=== PATIENT | female | born 1970 | race African-American/Black ===

== ENCOUNTER 2016-06-27 12:14 | Emergency (ER) | payer OTHER ==
[2016-06-27 12:28] VITALS: TEMP 97.4; BMI 28.7
[2016-06-27] MEDS ORDERED: SODIUM CHLORIDE 1,000 ML IV STA (13:21)
[2016-06-27 13:42] LABS: EOSINOPHIL 0.1 % (0-4.5); MCH 21.7 pg (25.7-33.7); MCHC 31.5 g/dl (32.0-36.0); MEAN PLT VOLUME 9.1 fl (7.5-11.1); NEUTROPHILS 85.7 % (42.8-82.8); PLATELET COUNT 261 K/MM3 (134-434); RDW 14.9 % (11.6-15.6)
--- NOTE | 2016-06-27 13:58 | PDOC ---
History of Present Illness - General Chief Complaint: Lightheaded Stated Complaint: WEAK DIZZY Time Seen by Provider: 06/27/16 12:56 History Source: Patient Exam Limitations: No Limitations - History of Present Illness Initial Comments: 06/27/16 12:58 45-year-old female presents the ED with complaints of nausea and dizziness worsened with standing since yesterday. Patient states feels as if the room is spinning and has to close her eyes and sit down otherwise she feels as if she is going to fall or vomit. Patient denies previous symptoms and associated symptoms such as headache, visual changes, chest pain, shortness of breath recent illness, recent injury. Patient also denies recent dental work, recent ear infection, recent change in weight or recent change in medications. Patient does state history of hypertension and colitis. Timing/Duration: 24 hours Severity: moderate Associated Symptoms: reports: nausea/vomiting Past History - Past Medical History Allergies/Adverse Reactions: Allergies Allergy/AdvReac Type Severity Reaction Status Date / Time No Known Allergies Allergy Verified 06/27/16 12:19 Home Medications: Ambulatory Orders Losartan Potassium 50 mg PO DAILY 06/27/16 Metoprolol Succinate [Toprol Xl] 50 mg PO DAILY 06/27/16 Pantoprazole Sodium [Protonix] 40 mg PO DAILY 06/27/16 GI Disorders: Yes (colitis) HTN: Yes - Reproductive History Is Patient Now?: No - Immunization History Immunization Up to Date: Yes - Psycho/Social/Smoking Cessation Hx Anxiety: No Suicidal Ideation: No Smoking Status: No Smoking History: Never smoked Have you smoked in the past 12 months: No Number of Cigarettes Smoked Daily: 0 Information on smoking cessation initiated: No Hx Alcohol Use: No Drug/Substance Use Hx: No Substance Use Type: None Patient Lives Alone: No Review of Systems - Review of Systems Able to Perform ROS?: Yes Constitutional: No: Symptoms Reported HEENTM: No: Symptoms Reported Respiratory: No: Symptoms reported Cardiac (ROS): Yes: Lightheadedness ABD/GI: Yes: Nausea Musculoskeletal: No: Symptoms Reported Integumentary: No: Symptoms Reported Neurological: Yes: Dizziness. No: Headache Endocrine: No: Symptoms Reported Hematologic/Lymphatic: No: Symptoms Reported *Physical Exam - Vital Signs Last Vital Signs Temp Pulse Resp BP Pulse Ox 97.4 F L 86 20 123/80 100 06/27/16 12:19 06/27/16 12:19 06/27/16 12:19 06/27/16 12:19 06/27/16 12:19 - Physical Exam General Appearance: Yes: Nourished, Appropriately Dressed. No: Apparent Distress HEENT: positive: EOMI, SABI, TMs Normal, Pharynx Normal. negative: Pale Conjunctivae Neck: positive: Normal Thyroid, Supple Respiratory/Chest: positive: Lungs Clear, Normal Breath Sounds. negative: Respiratory Distress, Accessory Muscle Use Cardiovascular: positive: Regular Rhythm, Regular Rate. negative: Murmur Extremity: positive: Normal Capillary Refill. negative: Pedal Edema Integumentary: positive: Normal Color, Warm, Moist Neurologic: positive: Normal Mood/Affect, Motor Strength 5/5 (ambulatory), Other (Hallpike's positive to the left) ED Treatment Course - LABORATORY CBC & Chemistry Diagram: 06/27/16 13:28 06/27/16 13:28 - RADIOLOGY Radiology Studies Ordered: Category Date Time Status CHEST X-RAY PORTABLE* [RAD] Stat Radiology 06/27/16 13:20 Taken Medical Decision Making - Medical Decision Making 06/27/16 14:01 Patient complains of intermittent dizziness associated nausea worsened with standing. Patient states symptoms began yesterday upon awakening. Patient does state increased stress and does state feels overwhelmed but denies history of depression or feeling of hopelessness. Patient ordered orthostatic vitals and was found to be orthostatic. Patient ordered for IV fluids, cardiac workup along with labs and chest x-ray. Patient also was Boykin pikes positive to the left so was ordered for meclizine. 06/27/16 17:11 Laboratory Tests 06/27/16 06/27/16 06/27/16 13:28 13:28 14:40 WBC 12.0 H D Hgb 12.7 Hct 40.3 MCV 69.0 L MCHC 31.5 L Plt Count 261 D Neutrophils % 85.7 H Polychromasia Pending Hypochromic-Microcytic Pending Anisocytosis Pending Sodium 135 L Potassium 4.2 Chloride 99 Carbon Dioxide 26 D Creatinine 0.6 Random Glucose 101 Calcium 9.3 Total Bilirubin 0.4 ALT 19 D Alkaline Phosphatase 64 Troponin I < 0.02 Urine Ketones Negative Urine Nitrite Negative Urine HCG, Qual Negative Head CT negative for acute findings. Patient has been up twice to the restroom since meclizine dosing with no complaints presently. Patient will be discharged home with meclizine along with a neurology follow-up and instructions on vertigo *DC/Admit/Observation/Transfer Diagnosis at time of Disposition: Postural vertigo Qualifiers: Laterality: left Qualified Code(s): H81.12 - Benign paroxysmal vertigo, left ear - Discharge Dispostion Disposition: HOME Condition at time of disposition: Improved - Referrals Referrals: Jhon Elizabeth MD [Primary Care Provider] - Sagar Hawk MD [Staff Physician] - - Patient Instructions Printed Discharge Instructions: DI for Benign Paroxysmal Positional Vertigo Additional Instructions: Please read over the instructions I have enclosed in regards to vertigo and take meclizine as needed for your symptoms. Please also follow up with referred neurologist and return to the emergency room if your symptoms worsen
[2016-06-27] MEDS ORDERED: MECLIZINE HCL 25 MG TABLET (FP) PO ONE (14:03)
[2016-06-27 14:05] LABS: ALBUMIN 3.5 g/dl (3.4-5.0); ANION GAP 10 (8-16); CALCIUM 9.3 mg/dL (8.5-10.1); CO2 26 mmol/L (21-32); COCKROFT - GAULT 147.7385; CREATININE 0.6 mg/dL (0.55-1.02); GLUCOSE,RANDOM 101 mg/dL (74-106); SGPT/ALT 19 U/L (12-78)
[2016-06-27] MEDS ORDERED: MECLIZINE HCL 25 MG TABLET (FP) ONE (14:06)
[2016-06-27 14:09] LABS: ALK PHOS 64 U/L (45-117); BILIRUBIN,TOTAL 0.4 mg/dL (0.2-1.0); TOT PROT 7.2 g/dl (6.4-8.2); TROPONIN I < 0.02 ng/ml (0.00-0.05)
[2016-06-27 14:20] LABS: SGOT/AST 25 U/L (15-37)
[2016-06-27 15:03] LABS: ANISOCYTOSIS 1+; HYPOCHROMIA 1+; MICROCYTOSIS 1+; POLYCHROMASIA RARE
[2016-06-27] MEDS ORDERED: diazePAM 5 MG TABLET PO ONE (15:21)
[2016-06-27 15:23] LABS: URINE APPEARANCE CLEAR; URINE BILIRUBIN NEGATIVE (NEGATIVE); URINE BLOOD NEGATIVE (NEGATIVE); URINE COLOR COLORLESS; URINE GLUCOSE (UA) NEGATIVE (NEGATIVE); URINE KETONE NEGATIVE (NEGATIVE); URINE LEUK ESTERASE NEGATIVE (NEGATIVE); URINE NITRITE NEGATIVE (NEGATIVE); URINE PROTEIN NEGATIVE (NEGATIVE); URINE UROBILINOGEN NEGATIVE E.U./dl (0.2-1.0)
[2016-06-27] MEDS ORDERED: diazePAM 5 MG TABLET ONE (15:23)
[2016-06-27 17:36] VITALS: BP 146/85; PULSE 93
--- NOTE | 2016-06-28 10:57 | EKG ---
Test Reason : Blood Pressure : / mmHG Vent. Rate : 082 BPM Atrial Rate : 082 BPM P-R Int : 160 ms QRS Dur : 074 ms QT Int : 382 ms P-R-T Axes : 066 005 031 degrees QTc Int : 446 ms NORMAL SINUS RHYTHM POSSIBLE LEFT ATRIAL ENLARGEMENT WHEN COMPARED WITH ECG OF 21-MAR-2015 21:21, NO SIGNIFICANT CHANGE WAS FOUND Confirmed by CLAIRE LAMAR MD ([id number]) on 06/28/2016 10:56:48 AM Referred By: Confirmed By:CLAIRE LAMAR MD
== END 2016-06-27 17:36 | disposition home or self-care (01) ==
LOC: JER 12:14
PROC: 3E0337Z Introduction of Electrolytic and Water Balance Substance into Peripheral Vein, Percutaneous Approach (ICD-10-PCS; principal; 2016-06-27)
DX: H81.12 Benign paroxysmal vertigo, left ear (principal); I10 Essential (primary) hypertension
CPT/HCPCS: 36415; 70450-TC; 71010-TC; 80053; 81003; 82550; 84484; 84703; 85025; 93005; 93010; 99284-25

== ENCOUNTER 2017-05-07 21:51 | Emergency (ER) | payer OTHER ==
[2017-05-07 22:12] VITALS: PULSE 93; TEMP 98.7; BMI 28.3
--- NOTE | 2017-05-07 22:25 | PDOC ---
History of Present Illness - General Chief Complaint: Chest Pain Stated Complaint: CHEST PAIN Time Seen by Provider: 05/07/17 22:23 - History of Present Illness Initial Comments: 05/07/17 22:56 The patient is a 46 year old female with a history of HTN who presents for evaluation of chest congestion, tightness and cough. The patient reports that she was seen at an ER 4 days ago and diagnosed with a URI. She was then evaluated at her ENT's office and was prescribed prednisone and amoxicillin 3 days ago. She reports continued symptoms with cough and worsening chest congestion prompting her presentation to the ED today for evaluation. She otherwise denies fevers, chills, SOB, nausea, vomiting, abdominal pain, or changes with urination or bowel movements. Past History - Past Medical History Allergies/Adverse Reactions: Allergies Allergy/AdvReac Type Severity Reaction Status Date / Time No Known Allergies Allergy Verified 05/07/17 22:11 Home Medications: Ambulatory Orders Losartan Potassium 50 mg PO DAILY 06/27/16 Metoprolol Succinate [Toprol Xl] 50 mg PO DAILY 06/27/16 Metoprolol Succinate [Toprol Xl] 25 mg PO HS 05/07/17 Azithromycin [Zithromax 250mg Tablets -] 250 mg PO UTDICT #4 tab 05/08/17 COPD: No GI Disorders: Yes (colitis) HTN: Yes - Immunization History Immunization Up to Date: Yes - Suicide/Smoking/Psychosocial Hx Smoking Status: No Smoking History: Never smoked Have you smoked in the past 12 months: No Number of Cigarettes Smoked Daily: 0 Information on smoking cessation initiated: No Hx Alcohol Use: No Drug/Substance Use Hx: No Substance Use Type: None Review of Systems - Review of Systems Comments:: 05/07/17 22:59 Constitutional: No fevers, fatigue, malaise HEENT: Nasal Congestion. No Rhinorrhea, visual changes Cardiovascular: Chest tightness. Chest Congestion. No syncope, palpitations, lightheadedness Respiratory: Cough. No SOB, Hemoptysis, Gastrointestinal: No Abdominal pain, Nausea, Vomiting, Constipation, Diarrhea, Melena Genitourinary: No Dysuria, Frequency, Urgency, Hesitancy, Hematuria, Flank pain Musculoskeletal: No Myalgia, arthralgia Skin: No rashes, itching, bruising, pallor Neurologic: No Headache, Dizziness, Numbness, Weakness, or Tingling Psychiatric: No Hallucinations. No SI or HI *Physical Exam - Vital Signs Last Vital Signs Temp Pulse Resp BP Pulse Ox 98.7 F 93 H 19 169/110 100 05/07/17 22:09 05/07/17 22:09 05/07/17 22:09 05/07/17 22:09 05/07/17 22:09 - Physical Exam Comments: 05/07/17 23:00 General Appearance: Nourished. No Apparent Distress HEENT: Mild Pharyngeal Erythema, No Tonsillar Exudate, Tonsillar Erythema Neck: No Cervical Lymphadenopathy Respiratory/Chest: Lungs Clear, Normal Breath Sounds. No Crackles, Rales, Rhonchi, Wheezing Cardiovascular: Regular Rhythm, Regular Rate. No Murmur, Gallops, Rubs Gastrointestinal/Abdominal: Normal Bowel Sounds, Soft. No Guarding, Rebound, Tenderness Musculoskeletal: No CVA Tenderness Extremity: Normal Capillary Refill Integumentary: Normal Color, Dry, Warm Neurologic: Fully Oriented, Alert, Normal Mood/Affect, Normal Response, Heart Score/ECG Review #1 ECG reviewed & interpreted by me at: 23:01 General ECG Interpretation: Sinus Rhythm, Normal Rate, Normal Intervals, No acute ischemic changes ED Treatment Course - LABORATORY CBC & Chemistry Diagram: 05/07/17 23:17 05/07/17 23:50 Medical Decision Making - Medical Decision Making 05/07/17 23:02 The patient is a 46 year old female with a history of HTN who presents for evaluation of chest congestion, tightness and cough. Differential includes but is not limited to: Pneumonia, Bronchitis, ACS, infectious, metabolic derangement. Given the patient's history and symptoms, we will obtain a cbc, cmp, chest plain film, and ekg to evaluate further for possible etiologies including a pneumonia. We will continue to monitor and reassess. 05/08/17 00:42 CBC, cmp are unremarkable. Chest plain film is unremarkable as preliminarily read by ER physician. However, given the patient's clinical symptoms, we will treat her for a bronchitis with azithromycin. We are comfortable discharging the patient home at this time with a course of azithromycin and primary care provider follow up. We discussed the results and the plan as well as return precautions with the patient who voiced understanding and is agreeable with the plan. *DC/Admit/Observation/Transfer Diagnosis at time of Disposition: Bronchitis - Discharge Dispostion Disposition: HOME Condition at time of disposition: Good Admit: No - Prescriptions Prescriptions: Azithromycin [Zithromax 250mg Tablets -] 250 mg PO UTDICT #4 tab - Referrals Referrals: Jhon Elizabeth MD [Primary Care Provider] - - Patient Instructions Printed Discharge Instructions: DI for Acute Bronchitis Additional Instructions: Please return to the ER if you experience concerning or worsening symptoms including worsening chest pain, difficulty breathing, or vomiting. Your lab results were normal here in the ER. We have sent a prescription for a new antibiotic for you to take called azithromycin that you should take daily for the next 4 days. You received your first dose here in the ER. Please call to schedule a follow up appointment with your primary care provider within 2-3 days to discuss your ER visit and further management of your symptoms. - Post Discharge Activity
--- NOTE | 2017-05-07 22:49 | PDOC ---
Attending Attestation - HPI HPI: 05/07/17 22:59 The patient is a 46 year old female with a significant PMH of HTN and colitis who presents to the emergency department with dry cough, nasal congestion, and chest tightness beginning approximately 4 days ago. The patient reports being evaluated on Friday for nasal congestion and notes being discharged with instructions for a respiratory viral illness. She notes going to her ENT on Friday and beginning a course of Pepcid and Amoxicillin which she has used to some relief. She presents today after her symptoms persist. Allergies: NKA PCP: Dr. Jhon Elizabeth <Silvio Pandey - Last Filed: 05/07/17 23:40> - Resident Resident Name: Javier Kirk - ED Attending Attestation I have performed the following: I have examined & evaluated the patient, The case was reviewed & discussed with the resident, I agree w/resident's findings & plan, Exceptions are as noted - Physicial Exam PE: 05/08/17 00:44 *Physical Exam General Appearance: Yes: Appropriately Dressed. No: Apparent Distress, Intoxicated HEENT: positive: EOMI, SABI, Normal ENT Inspection, Normal Voice, TMs Normal, Pharynx Normal. negative: Pale Conjunctivae, Photophobia, Scleral Icterus (R), Scleral Icterus (L) Neck: positive: Trachea midline, Normal Thyroid, Supple. negative: Tender, Rigid, Carotid bruit, Stridor, Lymphadenopathy (R), Lymphadenopathy (L), Thyromegaly Respiratory/Chest: positive: Lungs Clear, Normal Breath Sounds. negative: Chest Tender, Respiratory Distress, Accessory Muscle Use, Labored Respiration, RES, Crackles, Rales, Rhonchi, Stridor, Wheezing, Dullness Cardiovascular: positive: Regular Rhythm, Regular Rate, S1, S2. negative: Edema , JVD, Murmur, Bradycardia, Tachycardia Vascular Pulses: Dorsalis-Pedis (R): 2+, Doralis-Pedis (L): 2+ Gastrointestinal/Abdominal: positive: Normal Bowel Sounds, Flat, Soft. negative : Tender, Organomegaly, Pulsatile Mass, Increased Bowel Sounds, Decreased BS, Distended, Guarding, Rebound, Hernia, Hepatomegaly, Spleenomegaly Lymphatic: negative: Adenopathy, Tenderness Musculoskeletal: positive: Normal Inspection. negative: CVA Tenderness, Decreased Range of Motion Extremity: positive: Normal Capillary Refill, Normal Inspection, Normal Range of Motion, Pelvis Stable. negative: Tender, Pedal Edema, Swelling, Erythema Integumentary: positive: Normal Color, Dry, Warm. 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 negative: EOM Palsy, Facial Droop, Sensory Deficit - Medical Decision Making 05/08/17 00:44 pt treated and released <Troy Alberto - Last Filed: 05/08/17 00:44> Heart Score/ECG Review #1 05/07/17 23:40 Vent rate 83 bpm Normal sinus rhythm Normal intervals No acute ischemic changes. <Silvio Pandey - Last Filed: 05/07/17 23:40>
[2017-05-07 23:26] LABS: BASO % 0.9 % (0-2.0); EOS % 0.8 % (0-4.5); HEMATOCRIT 42.3 % (32.4-45.2); HEMOGLOBIN 13.2 GM/dL (10.7-15.3); LYMPH % 37.9 % (8-40); MCH 21.6 pg (25.7-33.7); MCHC 31.2 g/dl (32.0-36.0); MEAN CELL VOLUME 69.3 fl (80-96); MEAN PLT VOLUME 8.8 fl (7.5-11.1); MONO % 10.4 % (3.8-10.2); PLATELET COUNT 303 K/MM3 (134-434); RBC 6.11 M/mm3 (3.60-5.2); RDW 15.5 % (11.6-15.6); WHITE BLOOD COUNT 5.6 K/mm3 (4.0-10.0)
[2017-05-08 00:30] LABS: ALBUMIN 3.3 g/dl (3.4-5.0); ALK PHOS 96 U/L (45-117); ANION GAP 10 (8-16); BLOOD UREA NITROGEN 17 mg/dL (7-18); CALCIUM 8.2 mg/dL (8.5-10.1); CHLORIDE 104 mmol/L (98-107); CO2 28 mmol/L (21-32); CREATININE 0.7 mg/dL (0.55-1.02); GLUCOSE,RANDOM 118 mg/dL (74-106); POTASSIUM 3.4 mmol/L (3.5-5.1); SGOT/AST 17 U/L (15-37); SGPT/ALT 23 U/L (12-78); SODIUM 142 mmol/L (136-145); TOT PROT 7.2 g/dl (6.4-8.2)
[2017-05-08 00:32] LABS: BILIRUBIN,TOTAL < 0.1 mg/dL (0.2-1.0)
[2017-05-08] MEDS ORDERED: AZITHROMYCIN 250 MG TABLET PO ONE (00:41)
[2017-05-08] MEDS ORDERED: AZITHROMYCIN 250 MG TABLET ONE (00:55)
[2017-05-08 01:09] VITALS: BP 175/93
--- NOTE | 2017-05-08 16:38 | EKG ---
Test Reason : Blood Pressure : / mmHG Vent. Rate : 083 BPM Atrial Rate : 083 BPM P-R Int : 152 ms QRS Dur : 080 ms QT Int : 380 ms P-R-T Axes : 054 -31 008 degrees QTc Int : 446 ms NORMAL SINUS RHYTHM POSSIBLE LEFT ATRIAL ENLARGEMENT LEFT AXIS DEVIATION ABNORMAL ECG WHEN COMPARED WITH ECG OF 27-JUN-2016 13:50, QRS AXIS SHIFTED LEFT Confirmed by EMI OWEN, ELSY ([id number]) on 05/08/2017 4:38:17 PM Referred By: Confirmed By:ELSY MIDDLETON MD
== END 2017-05-08 01:09 | disposition home or self-care (01) ==
LOC: JER 21:51
DX: J40 Bronchitis, not specified as acute or chronic (principal); I10 Essential (primary) hypertension
CPT/HCPCS: 36415; 71046-TC-FY; 80053; 82550; 84484; 84703; 85025; 93005; 93010; 99282-25

== ENCOUNTER 2018-02-01 12:04 | Emergency (ER) | payer OTHER ==
[2018-02-01 12:22] VITALS: BMI 32.5
--- NOTE | 2018-02-01 12:33 | PDOC ---
History of Present Illness - General Chief Complaint: Back Pain Stated Complaint: SENT BY PCP HTN Time Seen by Provider: 02/01/18 12:33 History Source: Patient Exam Limitations: No Limitations - History of Present Illness Initial Comments: 02/01/18 12:56 CC: back pain, HTN HPI: 47 year old female with PMH HTN, Madiha Fundoplication, GERD sent to ED from urgent care for HTN, pt presented to urgent care complaining of left low back pain since this morning. She stated she was leaning over, trying to zip up a suitcase, heard a "pop" and began to feel left sided low back pain radiating to her left thigh. She stated this pain feels similar to her prior low back pain exacerbations. She stated she ran out of her Losartan 100 mg daily and Toprol 100 mg daily x4-5 days ago, and has not been able to get to the pharmacy to fill her medications secondary to work. She admitted to increased SOB at rest (with talking), blurry vision, lower extremity swelling (R>L) x4-5 days. She denied dizziness, weakness, hematuria, chest pain, recent travel>5 hours, hx DVT/PE, hormone use, OCP use, surgery <4 weeks, active malignancy <6 months. Social: Denied cigarette use, past or present. Denied every day etoh use. Denied illicit drug use. Surgical history: partial hysterectomy 2007 Past History - Past Medical History Allergies/Adverse Reactions: Allergies Allergy/AdvReac Type Severity Reaction Status Date / Time SLIM Inhibitors Allergy Verified 02/01/18 12:24 ramipril Allergy Verified 02/01/18 12:23 Home Medications: Ambulatory Orders Cephalexin Monohydrate [Keflex -] 500 mg PO BID #13 capsule 02/01/18 Furosemide [Lasix] 40 mg PO DAILY 02/01/18 Ibuprofen 600 mg PO TID #12 tablet 02/01/18 Linaclotide [Linzess] 72 mcg PO ASDIR 02/01/18 Losartan Potassium 100 mg PO DAILY 02/01/18 Losartan Potassium 100 mg PO DAILY #5 tablet 02/01/18 Metoclopramide HCl [Reglan] 5 mg PO TID 02/01/18 Metoprolol Succinate [Toprol Xl -] 100 mg PO DAILY 02/01/18 Metoprolol Succinate [Toprol Xl] 100 mg PO DAILY #5 tab.er.24h 02/01/18 COPD: No GI Disorders: Yes (colitis) HTN: Yes - Immunization History Immunization Up to Date: Yes - Suicide/Smoking/Psychosocial Hx Smoking Status: No Smoking History: Never smoked Have you smoked in the past 12 months: No Number of Cigarettes Smoked Daily: 0 Information on smoking cessation initiated: No Hx Alcohol Use: No Drug/Substance Use Hx: No Substance Use Type: None Review of Systems - Review of Systems Able to Perform ROS?: Yes Comments:: 02/01/18 13:02 General: denied fever, chills, night sweats, generalized weakness. Eyes: admitted to blurry vision. HENT: denied sore throat, rhinorrhea, ear pain. Heart: admitted to lower extremity swelling. denied chest pain, palpitations, syncope, diaphoresis. Respiratory: admitted to shortness of breath. denied cough, sputum production, hemoptysis. Abdomen: admitted to nausea. denied abdominal pain, vomiting, diarrhea, constipation, blood in stool. : denied dysuria, increased urinary frequency, hematuria, urinary incontinence , flank pain. Back: admitted to back pain. Musculoskeletal: denied joint pain, joint swelling. Neurological: admitted to headache. denied dizziness, numbness, tingling, weakness. Skin: denied rash, laceration, abrasion. *Physical Exam - Vital Signs Last Vital Signs Temp Pulse Resp BP Pulse Ox 98.0 F 94 H 16 232/123 H 100 02/01/18 12:20 02/01/18 12:20 02/01/18 12:20 02/01/18 12:20 02/01/18 12:20 - Physical Exam Comments: 02/01/18 13:05 Constitutional: Well-nourished, Well-developed, appearing stated age. HEENT: head is normocephalic, atraumatic. EOMI. PERRLA. Neck: supple. Full ROM. Heart: regular rhythm. no murmurs, rubs or gallops. Lungs: clear to auscultation bilaterally. no crackles, rhonchi or wheezing. no stridor. Abdomen: soft, nontender. normal bowel sounds. no rebound, guarding, masses. Extremities: Peripheral pulses intact adn equal. No lower extremity edema. Neurological: Alert. Oriented x3. CN2-12 intact. 5/5 strength RUE, LUE, RLE. Decreased strength to LLE secondary to back pain. Full sensation all extremities and bilateral face. No ataxia. Antalgic gait. Psych: awake, alert, oriented x3. Follows commands. Answers questions appropriately. Moderate Sedation - Procedure Monitoring Vital Signs: Procedure Monitoring Vital Signs Temperature 98.0 F 02/01/18 12:20 Pulse Rate 94 H 02/01/18 12:20 Respiratory Rate 16 02/01/18 12:20 Blood Pressure 232/123 H 02/01/18 12:20 O2 Sat by Pulse Oximetry (%) 100 02/01/18 12:20 ED Treatment Course - LABORATORY CBC & Chemistry Diagram: 02/01/18 12:48 02/01/18 14:28 Medical Decision Making - Medical Decision Making 02/01/18 13:06 MDM: Initial Vital Signs Temp Pulse Resp BP Pulse Ox 98.0 F 94 H 16 232/123 H 100 02/01/18 12:20 02/01/18 12:20 02/01/18 12:20 02/01/18 12:20 02/01/18 12:20 Afebrile. No tachycardia. No tachypnea. Hypertensive urgency. No hypoxia on room air. Labs ordered: CBC, CMP, cardiac enzymes, BNP, UA/UC Imaging ordered: CXR, CT head, RLE duplex US Medications ordered: Toprol 100 mg, Losartan 100 mg EKG performed at 1302: rate 83, regular rhythm, left axis, AZh=926, nonspecific ST changes. CBC WBC 8.9 K/mm3 (4.0-10.0) 02/01/18 12:48 RBC 5.90 M/mm3 (3.60-5.2) H 02/01/18 12:48 Hgb 13.1 GM/dL (10.7-15.3) 02/01/18 12:48 Hct 40.0 % (32.4-45.2) 02/01/18 12:48 MCV 67.8 fl (80-96) L 02/01/18 12:48 MCH 22.2 pg (25.7-33.7) L 02/01/18 12:48 MCHC 32.7 g/dl (32.0-36.0) 02/01/18 12:48 RDW 15.6 % (11.6-15.6) 02/01/18 12:48 Plt Count No Result Required. 02/01/18 12:48 MPV No Result Required. 02/01/18 12:48 Absolute Neuts (auto) 6.1 K/mm3 (1.5-8.0) 02/01/18 12:48 Neutrophils % 68.3 % (42.8-82.8) D 02/01/18 12:48 Lymphocytes % 23.5 % (8-40) D 02/01/18 12:48 Monocytes % 5.2 % (3.8-10.2) 02/01/18 12:48 Eosinophils % 1.7 % (0-4.5) D 02/01/18 12:48 Basophils % 1.3 % (0-2.0) 02/01/18 12:48 Nucleated RBC % 0 % (0-0) 02/01/18 12:48 No leukocytosis. No anemia. Decreased MCV. No thrombocytopenia. 02/01/18 13:23 CXR report: no acute chest pathology. 02/01/18 14:04 Lab stated CMP and T/S hemolyzed. Above reordered. 02/01/18 15:02 Vital Signs Temperature 98.0 F 02/01/18 12:20 Pulse Rate 94 H 02/01/18 12:20 Respiratory Rate 16 02/01/18 12:20 Blood Pressure 189/106 H 02/01/18 14:25 O2 Sat by Pulse Oximetry (%) 100 02/01/18 12:20 BP decreased with home meds. Valium ordered for back pain. Urine Test Results Urine Color Yellow 02/01/18 13:15 Urine Appearance Cloudy 02/01/18 13:15 Urine pH 6.0 (5.0-8.0) 02/01/18 13:15 Ur Specific [place] 1.026 (1.010-1.035) 02/01/18 13:15 Urine Protein Negative (NEGATIVE) 02/01/18 13:15 Urine Glucose (UA) Negative (NEGATIVE) 02/01/18 13:15 Urine Ketones Negative (NEGATIVE) 02/01/18 13:15 Urine Blood Negative (NEGATIVE) 02/01/18 13:15 Urine Nitrite Negative (NEGATIVE) 02/01/18 13:15 Urine Bilirubin Negative (<2.0 mg/dL) 02/01/18 13:15 Ur Leukocyte Esterase 3+ (NEGATIVE) H 02/01/18 13:15 Ur Epithelial Cells Many /HPF (FEW) 02/01/18 13:15 Urine Bacteria Rare /hpf (NONE SEEN) 02/01/18 13:15 Urine Mucus Few 02/01/18 13:15 WBC 61. Pt has UTI. - Keflex ordered No blood in urine. CT head report: no evidence of focal intracranial lesion or hemorrhage. RLE US report: no DVT 02/01/18 15:56 Pt reported improvement of back pain at rest, but not with movement. Pt standing. Repeat vitals: BP 179/100 HR 56 SPO2 100% on room air. 02/01/18 17:04 CMP Sodium 142 mmol/L (136-145) 02/01/18 14:28 Potassium 3.9 mmol/L (3.5-5.1) 02/01/18 14:28 Chloride 107 mmol/L (98-107) 02/01/18 14:28 Carbon Dioxide 25 mmol/L (21-32) 02/01/18 14:28 Anion Gap 10 MMOL/L (8-16) 02/01/18 14:28 BUN 11 mg/dL (7-18) 02/01/18 14:28 Creatinine 0.7 mg/dL (0.55-1.3) 02/01/18 14:28 Creat Clearance w eGFR > 60 (>60) 02/01/18 14:28 Random Glucose 70 mg/dL (74-106) L 02/01/18 14:28 Calcium 9.3 mg/dL (8.5-10.1) 02/01/18 14:28 Magnesium 2.1 mg/dL (1.8-2.4) 02/01/18 14:28 Total Bilirubin 0.3 mg/dL (0.2-1) 02/01/18 14:28 AST 18 U/L (15-37) 02/01/18 14:28 ALT 19 U/L (13-61) 02/01/18 14:28 Alkaline Phosphatase 81 U/L (45-117) 02/01/18 14:28 Creatine Kinase 97 IU/L (26-192) 02/01/18 14:28 Troponin I < 0.02 ng/ml (0.00-0.05) 02/01/18 14:28 B-Natriuretic Peptide 170.2 pg/ml (5-125) H 02/01/18 14:28 Total Protein 7.7 g/dl (6.4-8.2) 02/01/18 14:28 Albumin 3.7 g/dl (3.4-5.0) 02/01/18 14:28 No clinically concerning electrolyte abnormalities. No transaminitis. No TARYN. Normal cardiac enzymes. No transaminitis. BNP mildly elevated. Toradol ordered for back pain. 02/01/18 17:56 Pt reassessed, stated pain has decreased from 15/ to 9/10. Stated pain comes in spurts with muscle spasm. Vital Signs Temperature 98.0 F 02/01/18 12:20 Pulse Rate 71 02/01/18 17:37 Respiratory Rate 18 02/01/18 17:37 Blood Pressure 200/97 H 02/01/18 17:37 O2 Sat by Pulse Oximetry (%) 100 02/01/18 17:37 BP increasing. Lasix 10 mg ordered. - Pt now reported she did not take this medication today because she knew she would be out and didnt want to have to pee CTA thorax/abdomen/pelvis ordered to rule out AAA/dissection. - 1000 cc normal saline bolus ordered for IV contrast ppx 02/01/18 19:08 Vital Signs Temperature 98.0 F 02/01/18 12:20 Pulse Rate 71 02/01/18 17:37 Respiratory Rate 18 02/01/18 17:37 Blood Pressure 174/97 H 02/01/18 18:32 O2 Sat by Pulse Oximetry (%) 100 02/01/18 17:37 BP responsive to Lasix. 02/01/18 20:22 Pt reassessed, reported back pain improved to 6-7/10. Pt ambulating well unassisted. - Percocet ordered. CTA chest/abdomen report: no AAA, no thoracic aortic dissection, no abdominal aortic dissection, no obvious PE, trace pericardial effusion. Pt stated she will follow up with her PCP in 1-2 days. *DC/Admit/Observation/Transfer Diagnosis at time of Disposition: Hypertension, Back pain - Discharge Dispostion Disposition: HOME Condition at time of disposition: Stable Decision to Admit order: No - Prescriptions Prescriptions: Cephalexin Monohydrate [Keflex -] 500 mg PO BID #13 capsule Ibuprofen 600 mg PO TID #12 tablet Losartan Potassium 100 mg PO DAILY #5 tablet Metoprolol Succinate [Toprol Xl] 100 mg PO DAILY #5 tab.er.24h - Referrals Referrals: ON STAFF,NOT [Primary Care Provider] - - Patient Instructions Printed Discharge Instructions: DI for Low Back Pain, DI for High Blood Pressure Additional Instructions: You were seen today for high blood pressure and back pain. You have a urinary tract infection. I have sent a prescription to your pharmacy for an antibiotic, take as advised on label. Do not stop early. Do not miss any doses. Take an over the counter probiotic to help reduced antibiotic associated diarrhea. 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 Follow up with your primary care doctor in 1-2 days. Your care is not complete until you follow up. Return to the Emergency Department for increasing pain, loss of bowel or bladder function, lightheadedness like you may pass out, numbness/tingling, weakness of your arms or legs, chest pain, shortness of breath, coughing up blood, blood in urine or stool or any other new, worsening or concerning symptoms. - Post Discharge Activity
[2018-02-01] MEDS ORDERED: LOSARTAN POTASSIUM 50 MG TABLET (FP) PO ONE (13:16)
--- NOTE | 2018-02-01 13:56 | PDOC ---
Attending Attestation - Resident Resident Name: Lidia Gregg - ED Attending Attestation I have performed the following: I have examined & evaluated the patient, The case was reviewed & discussed with the resident, I agree w/resident's findings & plan, Exceptions are as noted - HPI HPI: 47 yo F history HTN, GERD, Madiha fundoplication presents with L low back pain since this morning. She leaned over to zip a suitcase and felt a pop sensation followed by severe low back pain radiating down her left thigh. Deneis weakness , numbness. She has been having difficulty sitting, turning her torso, and bending since this occurred. Denies cp, abdominal pain, N/V, shortness of breath. - Physicial Exam PE: GENERAL: Awake, alert, and fully oriented, in no acute distress. Appears uncomfortable, standing in the room. HEAD: No signs of trauma EYES: PERRLA, EOMI, sclera anicteric, conjunctiva clear ENT: Auricles normal inspection, hearing grossly normal, nares patent, oropharynx clear without exudates. Moist mucosa NECK: Normal ROM, supple, no lymphadenopathy, JVD, or masses LUNGS: Breath sounds equal, clear to auscultation bilaterally. No wheezes, and no crackles HEART: Regular rate and rhythm, normal S1 and S2, no murmurs, rubs or gallops ABDOMEN: Soft, nontender, normoactive bowel sounds. No guarding, no rebound. No masses EXTREMITIES: Normal range of motion, no edema. No clubbing or cyanosis. No cords, erythema, or tenderness NEUROLOGICAL: Cranial nerves II through XII grossly intact. Normal speech, normal gait. Motor and sensation intact. SKIN: Warm, Dry, normal turgor, no rashes or lesions noted. SPINE: No midline tenderness. +L lumbar paraspinal soft tissue tenderness. L SLR positive. - Medical Decision Making Pt with extremely high BP, has not been on her medication for the past 4-5 days , ran out. While that would raise the suspicion for AAA/dissection, the mechanism that led to her pain is much more typical for a musculoskeletal injury vs sciatica. It started with a pop, then is reproduced by any movements, plus radiation down her leg. Will obtain labs, give her regular HTN meds, obtain CTH (she mentioned blurry vision), and give analgesia.
[2018-02-01 14:02] LABS: PROTHROMBIN TIME (PATIENT) 11.8 SEC (9.7-13.0)
[2018-02-01 14:03] LABS: ACTIVATED PTT 27.4 SECONDS (25.2-36.5)
[2018-02-01 14:16] LABS: URINE APPEARANCE CLOUDY; URINE BILIRUBIN NEGATIVE (<2.0 mg/dL); URINE COLOR YELLOW; URINE GLUCOSE (UA) NEGATIVE (NEGATIVE); URINE KETONE NEGATIVE (NEGATIVE); URINE LEUK ESTERASE 3+ (NEGATIVE); URINE NITRITE NEGATIVE (NEGATIVE); URINE PROTEIN NEGATIVE (NEGATIVE); URINE UROBILINOGEN NEGATIVE mg/dL (0.2-1.0)
[2018-02-01 14:17] LABS: BASO % 1.3 % (0-2.0); EOS % 1.7 % (0-4.5); HEMOGLOBIN 13.1 GM/dL (10.7-15.3); LYMPH % 23.5 % (8-40); MCH 22.2 pg (25.7-33.7); MCHC 32.7 g/dl (32.0-36.0); MEAN CELL VOLUME 67.8 fl (80-96); MONO % 5.2 % (3.8-10.2); NEUT % 68.3 % (42.8-82.8); RDW 15.6 % (11.6-15.6); WHITE BLOOD COUNT 8.9 K/mm3 (4.0-10.0)
[2018-02-01] MEDS ORDERED: diazePAM 5 MG TABLET PO ONE (14:27)
[2018-02-01] MEDS ORDERED: diazePAM 5 MG TABLET ONE (14:40)
[2018-02-01 14:52] LABS: EPI CELLS MANY /HPF (FEW); URINE BACTERIA RARE /hpf (NONE SEEN); URINE MUCUS FEW
[2018-02-01] MEDS ORDERED: CEPHALEXIN MONOHYDRATE 500 MG CAPSULE (UD) PO ONE (15:02)
[2018-02-01] MEDS ORDERED: CEPHALEXIN MONOHYDRATE 500 MG CAPSULE (UD) ONE (15:13)
[2018-02-01 17:02] LABS: ALBUMIN 3.7 g/dl (3.4-5.0); ALK PHOS 81 U/L (45-117); ANION GAP 10 MMOL/L (8-16); BILIRUBIN,TOTAL 0.3 mg/dL (0.2-1); BLOOD UREA NITROGEN 11 mg/dL (7-18); CALCIUM 9.3 mg/dL (8.5-10.1); CHLORIDE 107 mmol/L (98-107); CO2 25 mmol/L (21-32); CREATININE 0.7 mg/dL (0.55-1.3); GLUCOSE,RANDOM 70 mg/dL (74-106); MAGNESIUM 2.1 mg/dL (1.8-2.4); N-TERMINAL BNP 170.2 pg/ml (5-125); POTASSIUM 3.9 mmol/L (3.5-5.1); SGOT/AST 18 U/L (15-37); SGPT/ALT 19 U/L (13-61); SODIUM 142 mmol/L (136-145); TOT PROT 7.7 g/dl (6.4-8.2)
[2018-02-01] MEDS ORDERED: KETOROLAC TROMETHAMINE 30 MG/1 ML VIAL IVPUSH ONE (17:04)
--- NOTE | 2018-02-01 17:16 | EKG ---
Test Reason : Blood Pressure : / mmHG Vent. Rate : 083 BPM Atrial Rate : 083 BPM P-R Int : 152 ms QRS Dur : 076 ms QT Int : 390 ms P-R-T Axes : 056 -27 028 degrees QTc Int : 458 ms NORMAL SINUS RHYTHM POSSIBLE LEFT ATRIAL ENLARGEMENT BORDERLINE ECG WHEN COMPARED WITH ECG OF 07-MAY-2017 22:05, NO SIGNIFICANT CHANGE WAS FOUND Confirmed by RAPHAEL KEATING MD ([id number]) on 02/01/2018 5:15:57 PM Referred By: Confirmed By:RAPHAEL KEATING MD
[2018-02-01] MEDS ORDERED: FUROSEMIDE 40 MG TABLET (FP) ONE (17:22)
[2018-02-01] MEDS ORDERED: KETOROLAC TROMETHAMINE 30 MG/1 ML VIAL ONE (17:22)
[2018-02-01] MEDS ORDERED: FUROSEMIDE 40 MG TABLET (FP) PO ONE (17:59)
[2018-02-01] MEDS ORDERED: SODIUM CHLORIDE 1,000 ML IV STA (18:06)
[2018-02-01] MEDS ORDERED: LIDOCAINE 5% TOPICAL PATCH TP ONE (18:13)
[2018-02-01] MEDS ORDERED: LIDOCAINE 5% TOPICAL PATCH ONE ×2 (18:26)
[2018-02-01 21:16] VITALS: BP 138/96; PULSE 75; TEMP 97.7
[2018-02-01] MEDS ORDERED: LIDOCAINE PATCH REMOVAL MC SCH (22:00)
== END 2018-02-01 21:21 | disposition home or self-care (01) ==
LOC: JER 12:04
PROC: 3E0333Z Introduction of Anti-inflammatory into Peripheral Vein, Percutaneous Approach (ICD-10-PCS; principal; 2018-02-01)
PROC: 3E0337Z Introduction of Electrolytic and Water Balance Substance into Peripheral Vein, Percutaneous Approach (ICD-10-PCS; 2018-02-01)
DX: M54.9 Dorsalgia, unspecified (principal); I10 Essential (primary) hypertension; K52.9 Noninfective gastroenteritis and colitis, unspecified; Z98.890 Other specified postprocedural states
CPT/HCPCS: 36415; 70450-TC; 71045-TC-FY; 71275-TC; 74175-TC; 80053; 81003; 81015; 82550; 83735; 83880; 84484; 85025; 85610; 85730; 87086; 93005; 93010; 93971-TC; 99283-25; J7030

== ENCOUNTER 2018-11-22 18:51 | Emergency (ER) | payer OTHER ==
[2018-11-22 18:57] VITALS: BP 168/94; PULSE 77; TEMP 98.9; BMI 33.9
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
== END 2018-11-22 19:40 | disposition home or self-care (01) ==
LOC: JERFT 18:51
DX: T22.011A Burn of unspecified degree of right forearm, initial encounter (principal); X10.2XXA Contact with fats and cooking oils, initial encounter; Y93.G1 Activity, food preparation and clean up; Y92.090 Kitchen in other non-institutional residence as the place of occurrence of the external cause; Y99.8 Other external cause status; I10 Essential (primary) hypertension; Z87.19 Personal history of other diseases of the digestive system; Z88.8 Allergy status to other drugs, medicaments and biological substances
CPT/HCPCS: 99281-25

== ENCOUNTER 2023-11-27 19:39 | Observation (INO) | payer OTHER ==
[2023-11-27 19:59] VITALS: BMI 36.3
[2023-11-27] MEDS ORDERED: ACETAMINOPHEN INJECTION 100 ML ONE (20:50)
[2023-11-27 22:34] LABS: EOS % 1.3 % (0-4.5); HEMATOCRIT 41.2 % (32.4-45.2); LYMPH % 20.8 % (8-40); MCH 21.5 pg (25.7-33.7); MCHC 31.7 g/dl (32.0-36.0); MEAN CELL VOLUME 67.9 fl (80-96); MONO % 6.5 % (3.8-10.2); NEUT % 70.4 % (42.8-82.8); PLATELET COUNT 390 10^3/uL (134-434); RBC 6.07 M/mm3 (3.60-5.2); RDW 15.8 % (11.6-15.6); WHITE BLOOD COUNT 12.8 K/mm3 (4.0-10.0)
[2023-11-27 22:42] LABS: INR 0.99 (0.83-1.09); PROTHROMBIN TIME (PATIENT) 11.2 SEC (9.7-13.0)
[2023-11-27] MEDS: ACETAMINOPHEN 1000 MG/100 ML BAG IVPB ONE (22:43)
[2023-11-27 22:45] LABS: ACTIVATED PTT 33.9 SECONDS (25.2-36.5)
[2023-11-27 22:58] LABS: POTASSIUM 3.9 mmol/L (3.5-5.1)
[2023-11-27 23:00] LABS: ALBUMIN 4.3 g/dl (3.4-5.0); BLOOD UREA NITROGEN 20.7 mg/dL (7-18); CALCIUM 10.3 mg/dL (8.5-10.1)
[2023-11-27 23:02] LABS: CREATININE 0.8 mg/dL (0.55-1.3)
[2023-11-27 23:05] LABS: BILIRUBIN,TOTAL 0.4 mg/dL (0.2-1); TOT PROT 8.8 g/dl (6.4-8.2)
[2023-11-27 23:06] LABS: ANISOCYTOSIS 2+; MACROCYTOSIS 0; TEAR DROP CELLS 1+
[2023-11-28] MEDS ORDERED: ASPIRIN 81 MG CHEWABLE TABLETS ONE (01:03)
[2023-11-28] MEDS: ASPIRIN 81 MG CHEWABLE TABLETS PO ONE (01:08)
[2023-11-28 02:08] LABS: EPI CELLS 13 /uL (0-25.1); HYALINE CASTS 0 /uL (0-3.1); PH,URINE 5.5 (5.0-8.0); URINE APPEARANCE CLEAR; URINE BACTERIA 116 /uL (0-1359); URINE BILIRUBIN NEGATIVE (NEGATIVE); URINE COLOR YELLOW; URINE GLUCOSE (UA) NEGATIVE (NEGATIVE); URINE KETONE NEGATIVE (NEGATIVE); URINE LEUK ESTERASE TRACE (NEGATIVE); URINE NITRITE NEGATIVE (NEGATIVE); URINE PROTEIN NEGATIVE (NEGATIVE); URINE RBC 4 /uL (0-23.9); URINE UROBILINOGEN 0.2 mg/dL (0.2-1.0); URINE WBC 20 /uL (0-25.8)
[2023-11-28 08:23] LABS: HEMATOCRIT 38.5 % (32.4-45.2); MCH 21.3 pg (25.7-33.7); MCHC 31.2 g/dl (32.0-36.0); MEAN CELL VOLUME 68.2 fl (80-96); MEAN PLT VOLUME 9.1 fl (7.5-11.1); PLATELET COUNT 331 10^3/uL (134-434); RBC 5.65 M/mm3 (3.60-5.2); RDW 15.7 % (11.6-15.6); WHITE BLOOD COUNT 9.2 K/mm3 (4.0-10.0)
[2023-11-28 08:24] LABS: POTASSIUM 3.6 mmol/L (3.5-5.1)
[2023-11-28 08:27] LABS: ALBUMIN 3.7 g/dl (3.4-5.0); CALCIUM 10.4 mg/dL (8.5-10.1); MAGNESIUM 2.4 mg/dL (1.8-2.4)
[2023-11-28 08:28] LABS: BLOOD UREA NITROGEN 11.5 mg/dL (7-18)
[2023-11-28 08:31] LABS: CREATININE 0.7 mg/dL (0.55-1.3); PHOSPHOROUS 4.5 mg/dL (2.5-4.9); TOT PROT 7.4 g/dl (6.4-8.2)
[2023-11-28 08:34] LABS: BILIRUBIN,TOTAL 0.6 mg/dL (0.2-1)
[2023-11-28] MEDS: ENOXAPARIN NA (PORCINE) 40 MG/0.4 ML DISP.SYRIN SQ SCH (09:21)
[2023-11-28] MEDS: VALSARTAN 160 MG TABLET PO SCH (09:21)
[2023-11-28] MEDS: HYDROCHLOROTHIAZIDE 25 MG TABLET (FP) PO SCH (09:22)
[2023-11-28] MEDS: LABETALOL HCL 100 MG TABLET (FP) PO SCH (09:22)
[2023-11-28] MEDS ORDERED: PATIENT'S OWN MEDICATION (NON-FORMULARY) (Valsartan/Hydrochlorothiazide [Valsartan-Hctz 32 PO SCH (10:00)
[2023-11-28] MEDS: IBUPROFEN 400 MG TABLET (FP) PO ONE (13:46)
[2023-11-28] MEDS: PANTOPRAZOLE 40 MG TABLET PO SCH (17:15)
[2023-11-28] MEDS: ATORVASTATIN CA 10 MG TABLET (FP) PO SCH (21:10)
[2023-11-28] MEDS: ACETAMINOPHEN 1000 MG/100 ML BAG IVPB PRN (21:17)
[2023-11-29] MEDS: ACETAMINOPHEN 325 MG TABLET (FP) PO ONE (12:30)
[2023-11-29 18:41] VITALS: BP 123/61; PULSE 87; RESP 18; TEMP 98.4
== END 2023-11-29 18:35 | disposition home or self-care (01) ==
LOC: JER 19:39 → JERBED 11-28 02:55 → UNDOADMOB 11-28 02:55 → OBSVTOIN 11-28 03:34 → INTOOBSV 11-28 03:34 → JERBED 11-28 04:07 → J4S 11-28 04:36
PROVIDERS: ADMIT Internal Medicine; ATTEND Internal Medicine
PROC: 3E033NZ Introduction of Analgesics, Hypnotics, Sedatives into Peripheral Vein, Percutaneous Approach (ICD-10-PCS; principal; 2023-11-28)
DX: R07.89 Other chest pain (principal); E83.52 Hypercalcemia; D72.829 Elevated white blood cell count, unspecified; K52.9 Noninfective gastroenteritis and colitis, unspecified; I10 Essential (primary) hypertension; E66.9 Obesity, unspecified; R60.0 Localized edema; R73.03 Prediabetes; K76.0 Fatty (change of) liver, not elsewhere classified; R71.8 Other abnormality of red blood cells; Z91.013 Allergy to seafood; Z88.8 Allergy status to other drugs, medicaments and biological substances
CPT/HCPCS: 0241U-QW; 36415; 71045-TC-FY; 71275-TC; 76705-TC; 80053; 80061; 81003; 82397; 83036; 83735; 83880; 84100; 84155; 84165; 84484; 85025; 85027; 85610; 85730; 87086; 93005; 93010; 93306-TC; 93970-TC; 99285-25; G0378; J0131